=== PATIENT | male | born 1990 | race African-American/Black ===

== ENCOUNTER 2016-12-14 20:18 | Emergency (ER) | payer SELFPAY ==
[2016-12-14 20:33] VITALS: BP 142/87
--- NOTE | 2016-12-14 20:36 | ER Document Report ---
ED Medical Screen (RME) - General Chief Complaint: Rash Stated Complaint: GENITAL RASH Mode of Arrival: Ambulatory Information source: Patient Notes: Patient presents to the emergency department with complaints of genital rash. He reports a herpes outbreak but has never had herpes before. Patient reports he was masturbating last night when he started hurting and noticed a rash this morning. Denies pain with void. Denies other symptoms such as fever vomiting diarrhea. I have greeted and performed a rapid initial assessment of this patient. A comprehensive ED assessment and evaluation of the patient, analysis of test results and completion of the medical decision making process will be conducted by additional ED providers. TRAVEL OUTSIDE OF THE [place] IN LAST 30 DAYS: No - Related Data Allergies/Adverse Reactions: No Known Allergies Allergy (Unverified 01/27/16 16:58) Past Medical History - Immunizations Immunizations up to date: Yes Hx Diphtheria, Pertussis, Tetanus Vaccination: No Physical Exam - Vital signs Vitals: Temp Pulse Resp BP Pulse Ox 97.9 F 70 18 142/87 H 96 12/14/16 20:32 12/14/16 20:32 12/14/16 20:32 12/14/16 20:32 12/14/16 20:32 Course - Vital Signs Vital signs: Temp Pulse Resp BP Pulse Ox 97.9 F 70 18 142/87 H 96 12/14/16 20:32 12/14/16 20:32 12/14/16 20:32 12/14/16 20:32 12/14/16 20:32
[2016-12-14] MEDS ORDERED: ACYCLOVIR 200 MG CAPSULE PO ONE (21:52)
--- NOTE | 2016-12-14 21:54 | ER Document Report ---
HPI - HPI Patient complains to provider of: genital rash Pain Level: 4 Context: Patient is a 26-year-old male presents for Department complaining of skin outbreak on his penis that he has had before. Patient states that he is diagnosed with genital herpes about 2 years ago and is now break every 4-6 months. Has previously been treated with a sick [place] which has worked for him. His any drainage from the tip of his penis any pyuria any groin pain or back pain. - DERM Skin Color: Normal Past Medical History - General Information source: Patient - Social History Smoking Status: Current Every Day Smoker Chew tobacco use (# tins/day): No Frequency of alcohol use: None Drug Abuse: Marijuana Family History: Reviewed & Not Pertinent Patient has suicidal ideation: No Patient has homicidal ideation: No Renal/ Medical History: Denies: Hx Peritoneal Dialysis - Immunizations Immunizations up to date: Yes Hx Diphtheria, Pertussis, Tetanus Vaccination: No Vertical Provider Document - CONSTITUTIONAL Agree With Documented VS: Yes Exam Limitations: No Limitations General Appearance: WD/WN, No Apparent Distress - INFECTION CONTROL TRAVEL OUTSIDE OF THE [place] IN LAST 30 DAYS: No - RESPIRATORY O2 Sat by Pulse Oximetry: 96 - GI/ABDOMEN Gastrointestinal: Abdomen Soft, Abdomen Non-Tender, No Organomegaly, Normal Bowel Sounds - REPRODUCTIVE Male Genitalia: Abnormal Inspection - Evidence of vesicles at the base of the head of the penis. Crusting. - BACK Back: negative: CVA Tenderness-Right, CVA Tenderness-Left - NEURO Level of Consciousness: Awake, Alert, Appropriate Motor/Sensory: No Motor Deficit, No Sensory Deficit - DERM Integumentary: Warm, Dry Course - Re-evaluation Re-evalutation: 12/14/16 21:49 Patient has evidence of a herpes outbreak. will discharge home on acyclovir and can follow-up with his PCP or the health department - Vital Signs Vital signs: Temp Pulse Resp BP Pulse Ox 97.9 F 70 18 142/87 H 96 12/14/16 20:32 12/14/16 20:32 12/14/16 20:32 12/14/16 20:32 12/14/16 20:32 Discharge - Discharge Clinical Impression: Genital herpes Qualifiers: Herpes simplex infection site: penis Qualified Code(s): A60.01 - Herpesviral infection of penis Condition: Good Disposition: HOME, SELF-CARE Instructions: Genital Herpes ([facility]), Acyclovir ([facility]) Prescriptions: Acyclovir [Acyclovir 400 mg Tablet] 400 mg PO TID 10 Days Forms: Elevated Blood Pressure Referrals: [facility] [NO LOCAL MD] - Follow up as needed
== END 2016-12-14 22:05 | disposition home or self-care (01) ==
LOC: ER 20:18
DX: A60.01 Herpesviral infection of penis (principal); R21 Rash and other nonspecific skin eruption; F17.200 Nicotine dependence, unspecified, uncomplicated
CPT/HCPCS: 99282

== ENCOUNTER 2017-03-27 12:44 | Emergency (ER) | payer SELFPAY ==
[2017-03-27 13:14] VITALS: BP 127/76
--- NOTE | 2017-03-27 13:47 | ER Document Report ---
HPI - HPI Pain Level: 4 Context: Patient is a 26-year-old male who comes to the ED c/o penile rash that began this morning. Pt states that it itches and does cause some irritation; soreness. Pt states he has had this before and was dx'd with herpes. Pt states that he has not been sexually active in the last month. He has not noticed any discharge, dysuria, pyuria, hematuria, fever, cp, sob, cough, abd pain, n/v. - ROS Systems Reviewed and Negative: Yes All other systems reviewed and negative - DERM Skin Color: Normal Past Medical History - Social History Smoking Status: Never Smoker - recreation marijuana only. Family History: Reviewed & Not Pertinent Patient has suicidal ideation: No Renal/ Medical History: Denies: Hx Peritoneal Dialysis - Immunizations Immunizations up to date: Yes Hx Diphtheria, Pertussis, Tetanus Vaccination: No Vertical Provider Document - CONSTITUTIONAL Notes: PHYSICAL EXAMINATION: GENERAL: Well-appearing, well-nourished and in no acute distress. HEAD: Atraumatic, normocephalic. EYES: Pupils equal round and reactive to light, extraocular movements intact, sclera anicteric, conjunctiva are normal. throat: oropharynx clear without exudates. No tonsilar hypertrophy or erythema. Moist mucous membranes. NECK: Normal range of motion, supple without lymphadenopathy LUNGS: Breath sounds clear to auscultation bilaterally and equal. No wheezes rales or rhonchi. HEART: Regular rate and rhythm without murmurs, rubs, gallops. ABDOMEN: Soft, nontender, nondistended abdomen. No guarding, no rebound. No masses appreciated. Normal bowel sounds present. No CVA tenderness bilaterally. No inguinal lymphadenopathy. : + erythemic papulovesicules to head of penis and one area on shaft. + mild tenderness to palpation. No urethral discharge, scrotal/testicle tenderness. Extremities: No cyanosis, clubbing, or edema b/l. Peripheral pulses 2+. Capillary refill less than 3 seconds. PSYCH: Normal mood, normal affect. SKIN: Warm, Dry, normal turgor, no rashes or lesions noted. - INFECTION CONTROL TRAVEL OUTSIDE OF THE [place] IN LAST 30 DAYS: No - RESPIRATORY O2 Sat by Pulse Oximetry: 97 Course - Re-evaluation Re-evalutation: Patient is a 26-year-old afebrile male who comes to the office with a rash to his penis consistent with herpes. Pt reports having this in the past as well. I will give him Acyclovir for his symptoms. Avoidance of sexual contact until lesions resolve. Conservative measures otherwise for symptoms. Pt in agreement. Recheck with PCM in 2-3 days. ED prn worsening symptoms. 03/27/17 13:46 - Vital Signs Vital signs: Temp Pulse Resp BP Pulse Ox 98.0 F 61 14 127/76 H 97 03/27/17 13:13 03/27/17 13:13 03/27/17 13:13 03/27/17 13:13 03/27/17 13:13 Discharge - Discharge Clinical Impression: Herpes Condition: Stable Disposition: HOME, SELF-CARE Additional Instructions: Herpes Simplex You have been diagnosed as having a herpes virus infection. The herpes ( "cold sore") virus usually infects the areas around the mouth. However, it can cause infection on any skin surface. It's particularly dangerous if infection occurs in the eye. On the initial infection, herpes blisters erupt over a large area. There is usually fever and aching. This infection takes about 14 days to resolve. After the initial infection, herpes sores can erupt on small areas (usually the lips), then heal in about a week. Sunburn, fever, local irritation, or even emotions can provoke a "fever blister" attack of herpes. Initial herpes infections can be treated with medication if severe. Subsequent attacks are usually given only local care to reduce symptoms; however , the physician may decide to prescribe anti-viral medication if your case warrants it. Call the doctor if you are worsening in any way. Take meds as directed tylenol/ibuprofen as needed Avoid sexual contact until lesions resolve Keep the skin clean F/u: with PCM in 2-3 days for a recheck. Return to the ED with any worsening pain, rash, fever, chest pain, shortness of breath, abscess, or purulent discharge. Prescriptions: Acyclovir 800 mg PO BID #10 tablet
== END 2017-03-27 14:10 | disposition home or self-care (01) ==
LOC: ER 12:44
DX: B00.9 Herpesviral infection, unspecified (principal); R21 Rash and other nonspecific skin eruption
CPT/HCPCS: 99282

== ENCOUNTER 2017-07-18 15:44 | Emergency (ER) | payer SELFPAY ==
--- NOTE | 2017-07-18 17:03 | ER Document Report ---
ED Skin Rash/Insect Bite/Abscs - General Chief Complaint: Rash Stated Complaint: RASH Time Seen by Provider: 07/18/17 16:54 Mode of Arrival: Ambulatory Information source: Patient Notes: 26-year-old male presents to ED for complaint of rash to his genitals. He states he has a history of genital herpes. He states he has run out of medication and does not have a primary doctor. He states he has taken dicyclomine in the past for these genital herpes. TRAVEL OUTSIDE OF THE [place] IN LAST 30 DAYS: No - HPI Patient complains to provider of: Skin rash/lesion - Genital herpes Onset: Other - States he has them periodically he noticed them again this morning Onset/Duration: Gradual Quality of pain: Burning Severity: Moderate Pain Level: 3 Skin Character: Vesicular Quality of rash: Painful Identify cause: Yes - Has a history of genital herpes Exacerbated by: Denies Relieved by: Denies Similar symptoms previously: Yes Recently seen / treated by doctor: No - Related Data Allergies/Adverse Reactions: No Known Allergies Allergy (Unverified 01/27/16 16:58) Past Medical History - General Information source: Patient - Social History Smoking Status: Never Smoker Cigarette use (# per day): No Chew tobacco use (# tins/day): No Smoking Education Provided: No Frequency of alcohol use: None Drug Abuse: Marijuana Occupation: Landscaping Lives with: Alone Family History: DM, Hypertension. denies: Arthritis, CAD, COPD, CVA, Hyperlipidemia, Malignancy, Thyroid Disfunction Patient has suicidal ideation: No Patient has homicidal ideation: No - Past Medical History Cardiac Medical History: Reports: None Pulmonary Medical History: Reports: None EENT Medical History: Reports: None Neurological Medical History: Reports: None Endocrine Medical History: Reports: None Renal/ Medical History: Reports: Other - Genital. herpes. Denies: Hx Peritoneal Dialysis Malignancy Medical History: Reports None GI Medical History: Reports: None Musculoskeltal Medical History: Reports None Skin Medical History: Reports None Psychiatric Medical History: Reports: None Traumatic Medical History: Reports: None Infectious Medical History: Reports: None Surgical Hx: Negative - Immunizations Immunizations up to date: Yes Hx Diphtheria, Pertussis, Tetanus Vaccination: No Review of Systems - Review of Systems Constitutional: No symptoms reported EENT: No symptoms reported Cardiovascular: No symptoms reported Respiratory: No symptoms reported Gastrointestinal: No symptoms reported Genitourinary: Other - Genital herpes Male Genitourinary: Other - General to herpes Musculoskeletal: No symptoms reported Skin: No symptoms reported Hematologic/Lymphatic: No symptoms reported Neurological/Psychological: No symptoms reported -: Yes All other systems reviewed and negative Physical Exam - Vital signs Vitals: Temp Pulse Resp BP Pulse Ox 98.3 F 55 L 16 138/62 H 99 07/18/17 16:00 07/18/17 16:00 07/18/17 16:00 07/18/17 16:00 07/18/17 16:00 Interpretation: Normal - General General appearance: Appears well, Alert - HEENT Head: Normocephalic, Atraumatic Eyes: Normal Pupils: PERRL - Respiratory Respiratory status: No respiratory distress Chest status: Nontender Breath sounds: Normal Chest palpation: Normal - Cardiovascular Rhythm: Regular Heart sounds: Normal auscultation Murmur: No - Abdominal Inspection: Normal Distension: No distension Bowel sounds: Normal Tenderness: Nontender Organomegaly: No organomegaly - Back Back: Normal, Nontender - Extremities General upper extremity: Normal inspection, Nontender, Normal color, Normal ROM , Normal temperature General lower extremity: Normal inspection, Nontender, Normal color, Normal ROM , Normal temperature, Normal weight bearing. No: Bandar's sign - Neurological Neuro grossly intact: Yes Cognition: Normal Orientation: AAOx4 Nasrin Coma Scale Eye Opening: Spontaneous Nasrin Coma Scale Verbal: Oriented Nasrin Coma Scale Motor: Obeys Commands [place] Coma Scale Total: 15 Speech: Normal Motor strength normal: LUE, RUE, LLE, RLE Sensory: Normal - Psychological Associated symptoms: Normal affect, Normal mood - Skin Skin Temperature: Warm Skin Moisture: Dry Skin Color: Normal Skin irregularity: Rash Character of irregularity: Vesicular Course - Re-evaluation Re-evalutation: 07/18/17 17:07 Patient has a new outbreak of genital herpes and would like some. He states he does not have a primary doctor. Patient was given a prescription for acyclovir and a list of all the local doctors for him to find himself a local doctor. - Vital Signs Vital signs: Temp Pulse Resp BP Pulse Ox 98.3 F 55 L 16 138/62 H 99 07/18/17 16:00 07/18/17 16:00 07/18/17 16:00 07/18/17 16:00 07/18/17 16:00 Discharge - Discharge Clinical Impression: Herpes simplex of male genitalia Condition: Stable Disposition: HOME, SELF-CARE Instructions: Family Physicians / Practices Additional Instructions: Herpes Simplex You have been diagnosed as having a herpes virus infection. The herpes ( "cold sore") virus usually infects the areas around the mouth. However, it can cause infection on any skin surface. It's particularly dangerous if infection occurs in the eye. On the initial infection, herpes blisters erupt over a large area. There is usually fever and aching. This infection takes about 14 days to resolve. After the initial infection, herpes sores can erupt on small areas (usually the lips), then heal in about a week. Sunburn, fever, local irritation, or even emotions can provoke a "fever blister" attack of herpes. Initial herpes infections can be treated with medication if severe. Subsequent attacks are usually given only local care to reduce symptoms; however , the physician may decide to prescribe anti-viral medication if your case warrants it. Call the doctor if you are worsening in any way. Acyclovir Acyclovir (Zovirax) is used to treat infections caused by the Herpes family of viruses. It's available as capsules or ointment. Zovirax is most effective if started at the first sign of the viral outbreak. It can decrease the severity and duration of symptoms. However, it doesn't eliminate the virus from the body completely. If you're prone to repeated outbreaks of herpes, you'll continue to have attacks. Apply ointment with a disposable glove or finger-cot to avoid spreading the virus with your finger. If pills have been prescribed, take them for the full recommended course. Occasionally, mild nausea or headaches may occur. Call the doctor if you develop wheezing, itching, rash, shortness of breath , or lightheadedness. FOLLOW-UP CARE: If you have been referred to a physician for follow-up care, call the physician s office for an appointment as you were instructed or within the next two days. If you experience worsening or a significant change in your symptoms, notify the physician immediately or return to the Emergency Department at any time for re-evaluation. Prescriptions: Acyclovir [Zovirax] 200 mg PO 5XD #50 capsule Forms: Elevated Blood Pressure, Smoking Cessation Education, Return to Work
[2017-07-18 17:17] VITALS: BP 128/74
== END 2017-07-18 17:12 | disposition home or self-care (01) ==
LOC: ER 15:44
DX: A60.00 Herpesviral infection of urogenital system, unspecified (principal)
CPT/HCPCS: 99282

== ENCOUNTER 2017-10-25 10:10 | Emergency (ER) | payer SELFPAY ==
[2017-10-25] MEDS ORDERED: AZITHROMYCIN 250 MG TABLET PO ONE (10:58)
[2017-10-25] MEDS ORDERED: LIDOCAINE 1% INJ-PF (10 MG/ML) 30 ML SDV INJ ONE (10:58)
[2017-10-25] MEDS ORDERED: CEFTRIAXONE INJ 250 MG VIAL IM ONE (10:58)
--- NOTE | 2017-10-25 11:26 | ER Document Report ---
HPI - HPI Patient complains to provider of: Skin rash Onset: Other - 4 days Onset/Duration: Persistent Pain Level: Denies Context: Patient complains of skin rash to the underside of his penis for the past 4 days. Patient does report a previous history of genital warts as well as genital herpes. Patient does report using a new soap to the area. Associated Symptoms: Other - Skin rash Exacerbated by: Denies Relieved by: Denies Similar symptoms previously: No Recently seen / treated by doctor: No - ROS ROS below otherwise negative: Yes Systems Reviewed and Negative: Yes All other systems reviewed and negative - CONSTITUTIONAL Constitutional: DENIES: Fever, Chills - RESPIRATORY Respiratory: DENIES: Coughing - GASTROINTESTINAL Gastrointestinal: DENIES: Nausea - URINARY Urinary: DENIES: Dysuria Notes: Patient does report yellow discharge in his ejaculate and is concerned about possible STD. - REPRODUCTIVE Reproductive: DENIES: Abnormal bleeding / discharge - MUSCULOSKELETAL Musculoskeletal: DENIES: Back Pain, Neck Pain - DERM Skin Color: Normal Skin Problems: Rash Past Medical History - General Information source: Patient - Social History Smoking Status: Never Smoker Chew tobacco use (# tins/day): No Frequency of alcohol use: None Drug Abuse: Marijuana Family History: DM, Hypertension. denies: Arthritis, CAD, COPD, CVA, Hyperlipidemia, Malignancy, Thyroid Disfunction Patient has suicidal ideation: No Patient has homicidal ideation: No Renal/ Medical History: Denies: Hx Peritoneal Dialysis Infectious Medical History: Reports: Other - Herpes, HPV Surgical Hx: Negative - Immunizations Immunizations up to date: Yes Hx Diphtheria, Pertussis, Tetanus Vaccination: No Vertical Provider Document - CONSTITUTIONAL Agree With Documented VS: Yes Exam Limitations: No Limitations General Appearance: WD/WN, No Apparent Distress - INFECTION CONTROL TRAVEL OUTSIDE OF THE [place] IN LAST 30 DAYS: No - HEENT HEENT: Atraumatic, Normocephalic - NECK Neck: Normal Inspection - RESPIRATORY Respiratory: Breath Sounds Normal, No Respiratory Distress O2 Sat by Pulse Oximetry: 98 - CARDIOVASCULAR Cardiovascular: Regular Rate, Regular Rhythm - GI/ABDOMEN Gastrointestinal: Abdomen Soft, Abdomen Non-Tender - REPRODUCTIVE Male Genitalia: Abnormal Inspection - Mildly scaling papular rash to ventral side of the penile shaft, no testicular tenderness, no penile discharge, no inguinal lymph adenopathy - BACK Back: Normal Inspection - MUSCULOSKELETAL/EXTREMETIES Musculoskeletal/Extremeties: MAEW - NEURO Level of Consciousness: Awake, Alert, Appropriate Motor/Sensory: No Motor Deficit - DERM Integumentary: Rash - Ventral aspect of the penis Course - Re-evaluation Re-evalutation: 10/25/17 Rash does not look concerning for herpes or HPV virus at this time. Will cover with antifungal medication at this time. Patient encouraged to avoid new soap and to return using his usual detergents - Vital Signs Vital signs: Temp Pulse Resp BP Pulse Ox 98.4 F 63 12 125/71 98 10/25/17 10:31 10/25/17 10:31 10/25/17 10:31 10/25/17 10:31 10/25/17 10:31 Discharge - Discharge Clinical Impression: Skin rash, Penile discharge Condition: Stable Disposition: HOME, SELF-CARE Instructions: Azithromycin ([facility]), Rocephin ([facility]), Skin Fungus ([facility]) Additional Instructions: Return immediately for any new or worsening symptoms Followup with your primary care provider, call tomorrow to make a followup appointment Use your normal mild soap cleanse the affected area Cultures are pending, we will call if you need any different treatment Prescriptions: Clotrimazole 1 applic TOP BID #45 gm
[2017-10-25 12:39] VITALS: BP 118/73
[2017-10-25 13:26] LABS: CHLAM PCR NOT DETECTED (NOT DETECT); GON PCR NOT DETECTED (NOT DETECT)
== END 2017-10-25 12:08 | disposition home or self-care (01) ==
LOC: ER 10:10
DX: R21 Rash and other nonspecific skin eruption (principal); R36.9 Urethral discharge, unspecified; A60.00 Herpesviral infection of urogenital system, unspecified; A63.0 Anogenital (venereal) warts
CPT/HCPCS: 99283; 96372; 87491; 87591; J3490; J0696

== ENCOUNTER 2018-03-02 11:42 | Emergency (ER) | payer SELFPAY ==
[2018-03-02 11:56] VITALS: BP 113/70
[2018-03-02] MEDS ORDERED: LIDOCAINE 1% INJ-PF (10 MG/ML) 30 ML SDV INJ ONE (12:13)
[2018-03-02] MEDS ORDERED: AZITHROMYCIN 250 MG TABLET PO ONE (12:13)
[2018-03-02] MEDS ORDERED: CEFTRIAXONE INJ 250 MG VIAL IM ONE (12:13)
--- NOTE | 2018-03-02 12:19 | ER Document Report ---
ED GI/ - General Chief Complaint: STD Exposure Stated Complaint: STD CHECK Time Seen by Provider: 03/02/18 12:00 Mode of Arrival: Ambulatory Information source: Patient Notes: 27-year-old male presents to ED for complaint of exposure to gonorrhea. He states that a recent sexual partner was called and told that her previous partner had gonorrhea and was being treated for it. He states he also has some dry areas on his penis and he was concerned. He said they are not so they are not irritated. He states when he masturbates he does not use any kind of lubricant and is made his penis dry. States he also when he ejaculates it is not his forceful and it kind just "plops". He denies any pain or discomfort with urination. Denies any problems starting or finishing his streams. TRAVEL OUTSIDE OF THE [place] IN LAST 30 DAYS: No - HPI Patient complains to provider of: Other - STD exposure dry penis Onset: Other - He was recently told by her previous sexual partner that she was exposed to gonorrhea Quality of pain: No pain Sexual history: Unprotected intercourse, STD exposure Associated symptoms: denies: Penile discharge Exacerbated by: Denies Relieved by: Denies Similar symptoms previously: Yes Recently seen / treated by doctor: No - Related Data Allergies/Adverse Reactions: No Known Allergies Allergy (Verified 03/02/18 11:50) Past Medical History - General Information source: Patient - Social History Smoking Status: Never Smoker Cigarette use (# per day): No Chew tobacco use (# tins/day): No Smoking Education Provided: No Frequency of alcohol use: None Drug Abuse: Marijuana Family History: DM, Hypertension Patient has suicidal ideation: No Patient has homicidal ideation: No - Past Medical History Cardiac Medical History: Reports: None Pulmonary Medical History: Reports: None EENT Medical History: Reports: None Neurological Medical History: Reports: None Endocrine Medical History: Reports: None Renal/ Medical History: Reports: None Malignancy Medical History: Reports None GI Medical History: Reports: None Musculoskeltal Medical History: Reports None Skin Medical History: Reports None Psychiatric Medical History: Reports: None Traumatic Medical History: Reports: None 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 denies: See HPI , Erectile dysfunction - States the last couple days his ejaculation has not been as forceful, Testicular pain, Penile discharge Musculoskeletal: No symptoms reported Skin: No symptoms reported Hematologic/Lymphatic: No symptoms reported Neurological/Psychological: No symptoms reported -: Yes All other systems reviewed and negative Physical Exam - Vital signs Vitals: Temp Pulse Resp BP Pulse Ox 98.2 F 62 18 113/70 96 03/02/18 11:55 03/02/18 11:55 03/02/18 11:55 03/02/18 11:55 03/02/18 11:55 Interpretation: Normal - General General appearance: Appears well, Alert - HEENT Head: Normocephalic, Atraumatic Eyes: Normal Pupils: PERRL - Respiratory Respiratory status: No respiratory distress Chest status: Nontender Breath sounds: Normal Chest palpation: Normal - Cardiovascular Rhythm: Regular Heart sounds: Normal auscultation Murmur: No - Abdominal Inspection: Normal Distension: No distension Bowel sounds: Normal Tenderness: Nontender Organomegaly: No organomegaly - Genitourinary Tenderness: Nontender Cremasteric reflex: Normal Scrotum: Normal Notes: Very minimal dryness behind the head of the penis no ulcers no canker sores no penile drainage - Back Back: Normal, Nontender - Extremities General upper extremity: Normal inspection, Nontender, Normal color, Normal ROM , Normal temperature General lower extremity: Normal inspection, Nontender, Normal color, Normal ROM , Normal temperature, Normal weight bearing. No: Bandar's sign - Neurological Neuro grossly intact: Yes Cognition: Normal Orientation: AAOx4 Crenshaw Coma Scale Eye Opening: Spontaneous Nasrin Coma Scale Verbal: Oriented Nasrin Coma Scale Motor: Obeys Commands Nasrin Coma Scale Total: 15 Speech: Normal Motor strength normal: LUE, RUE, LLE, RLE Sensory: Normal - Psychological Associated symptoms: Normal affect, Normal mood - Skin Skin Temperature: Warm Skin Moisture: Dry Skin Color: Normal Course - Re-evaluation Re-evalutation: 03/02/18 12:18 Patient was treated with azithromycin and Rocephin for possible exposure to gonorrhea. GC and chlamydia urine was sent for testing. Patient to call the culture line tomorrow for results. - Vital Signs Vital signs: Temp Pulse Resp BP Pulse Ox 98.2 F 62 18 113/70 96 03/02/18 11:55 03/02/18 11:55 03/02/18 11:55 03/02/18 11:55 03/02/18 11:55 Discharge - Discharge Clinical Impression: STD exposure Condition: Stable Disposition: HOME, SELF-CARE Instructions: Family Physicians / Practices Additional Instructions: He was seen today for STD exposure. Rocephin You have been given an injection of an antibiotic called Rocephin ( ceftriaxone). Sometimes the injection must be combined with antibiotic pills. For some infections, such as an uncomplicated ear infection, Rocephin provides all the antibiotic that's needed. The antibiotic will be in your body for about two days. For serious infections, we usually repeat doses of Rocephin daily. Side effects are very unusual following a shot. Women may develop vaginal yeast infections, and babies can get yeast (thrush) in the mouth following the use of antibiotics. Contact your physician if you have symptoms with this medication. Allergy to this antibiotic can result in hives, wheezing, faintness, or itching. If symptoms of allergy occur, call the doctor at once. Azithromycin Azithromycin (Zithromax) is a broad spectrum antibiotic in the same class as erythromycin. It can treat a variety of bacterial infections, but is most frequently used for respiratory infections. Azithromycin is extremely long-lasting. It accumulates in body tissues and continues to kill bacteria for many days. In order to improve absorption, Azithromycin should be taken at least one hour before or two hours after a meal. It does not have the same strong tendency to upset the stomach as erythromycin and is usually very well tolerated. Patients who have had a rash or other true allergic reactions to erythromycin should not take this medication. Call if you develop gastrointestinal distress, severe diarrhea, rash, hives, itching, or shortness of breath. Call tomorrow morning the culture line to find the results of your GC chlamydia call [phone] FOLLOW-UP CARE: If you have been referred to a physician for follow-up care, call the physician s office for an appointment as you were instructed or within the next two days. If you experience worsening or a significant change in your symptoms, notify the physician immediately or return to the Emergency Department at any time for re-evaluation.
[2018-03-02 14:08] LABS: CHLAM PCR NOT DETECTED (NOT DETECT); GON PCR NOT DETECTED (NOT DETECT)
== END 2018-03-02 12:32 | disposition home or self-care (01) ==
LOC: ER 11:42
DX: Z20.2 Contact with and (suspected) exposure to infections with a predominantly sexual mode of transmission (principal)
CPT/HCPCS: 99283; 96372; 87491; 87591; J3490; J0696

== ENCOUNTER 2018-03-17 13:41 | Emergency (ER) | payer SELFPAY ==
[2018-03-17 13:48] VITALS: BP 119/67
[2018-03-17] MEDS ORDERED: LIDOCAINE 1% INJ-PF (10 MG/ML) 30 ML SDV INJ ONE (14:01)
[2018-03-17] MEDS ORDERED: CEFTRIAXONE INJ 250 MG VIAL IM ONE (14:01)
[2018-03-17] MEDS ORDERED: AZITHROMYCIN 250 MG TABLET PO ONE (14:01)
--- NOTE | 2018-03-17 14:59 | ER Document Report ---
HPI - HPI Pain Level: Denies Notes: Patient is a 27-year-old male with no significant past medical history who presents to the ED complaining of dysuria and urethral discharge 1 day. Patient states that he did have unprotected sex somewhat recently. He is unaware if his partner is symptomatically or not. He is otherwise eating and drinking without difficulties. Is having normal bowel movements. Denies any drug allergies. No other concerns or complaints at this time. Denies any headache, fever, URI, sore throat, chest pain, palpitations, syncope, cough, shortness of breath, wheeze, dyspnea, abdominal pain, nausea/vomiting/diarrhea, or rash. - ROS Systems Reviewed and Negative: Yes All other systems reviewed and negative - REPRODUCTIVE Reproductive: REPORTS: Abnormal bleeding / discharge - discharge Past Medical History - Social History Smoking Status: Never Smoker Chew tobacco use (# tins/day): No Frequency of alcohol use: None Drug Abuse: Marijuana Family History: DM, Hypertension Patient has suicidal ideation: No Patient has homicidal ideation: No Renal/ Medical History: Denies: Hx Peritoneal Dialysis - Immunizations Immunizations up to date: Yes Hx Diphtheria, Pertussis, Tetanus Vaccination: No Vertical Provider Document - CONSTITUTIONAL Agree With Documented VS: Yes Notes: PHYSICAL EXAMINATION: GENERAL: Well-appearing, well-nourished and in no acute distress. HEAD: Atraumatic, normocephalic. EYES: Pupils equal round and reactive to light, extraocular movements intact, sclera anicteric, conjunctiva are normal. LUNGS: Breath sounds clear to auscultation bilaterally and equal. No wheezes rales or rhonchi. HEART: Regular rate and rhythm without murmurs, rubs, gallops. ABDOMEN: Soft, nontender, nondistended abdomen. No guarding, no rebound. No masses appreciated. Normal bowel sounds present. No CVA tenderness bilaterally. : Circumcised. No obvious lesions, ulcerations, or rash noted. No tenderness to the testicles/scrotum/penis. No obvious lymphadenopathy. ?+ clear discharge noted. Extremities: No cyanosis, clubbing, or edema b/l. Peripheral pulses 2+. Capillary refill less than 3 seconds. NEUROLOGICAL: Normal speech, normal gait. PSYCH: Normal mood, normal affect. SKIN: Warm, Dry, normal turgor, no rashes or lesions noted. - INFECTION CONTROL TRAVEL OUTSIDE OF THE [place] IN LAST 30 DAYS: No Course - Re-evaluation Re-evalutation: 03/17/18 14:56 Patient is an afebrile, well-hydrated, 27-year-old male who presents to the ED with dysuria and urethral discharge, possible STD. Vitals are acceptable. PE is otherwise unremarkable. Urinalysis, GC/chlamydia, UC are all pending. Patient was given Zithromax and Rocephin. No other labs or imaging warranted at this time based on H&P. He has no significant tachycardia, tachypnea, or hypoxia. He is tolerating p.o. without any difficulties. Abdomen is otherwise soft and nontender. Low suspicion for any necrotizing fasciitis, sepsis, meningitis, acute abdomen, or other systemic emergent condition at this time. Patient to monitor symptoms closely and seek medical attention with any acute changes. Conservative measures otherwise for symptoms. Recheck with your PCM in 3-5 days. Return to the ED with any worsening/concerning symptoms otherwise as reviewed discharge. Patient is in agreement. - Vital Signs Vital signs: Temp Pulse Resp BP Pulse Ox 98.6 F 71 16 119/67 97 03/17/18 13:46 03/17/18 13:46 03/17/18 13:46 03/17/18 13:46 03/17/18 13:46 Discharge - Discharge Clinical Impression: Dysuria, Urethral discharge in male Condition: Stable Disposition: HOME, SELF-CARE Additional Instructions: Push fluids (i.e. water, cranberry juice) Abstain from any sexual intercourse x2 weeks Proper hygenic technique Keep the skin clean Safe sexual practices with condoms everytime Tylenol/ibuprofen as needed May use over the counter AZO for burning with urination Check in with the health department this week for further testing* Your chlamydia/Ghon test are pending and you will be notified if positive results; you may call in 1 day for the results as well Return immediately if symptoms worsen F/u with your PCM in 3-5 days for a recheck Consider consult with a Urologist for ongoing/worsening symptoms. Return to the ED with any development of ROSALES/fever, trouble with vision, eye redness, worsening pain, urethral discharge, urinary retention, blood in the urine, flank pain, abdominal pain, n/v, Chest Pain, shortness of breath, joint pains, trouble breathing, or any other worsening/concerning symptoms as needed otherwise. Referrals: [facility] DEPT,[facility] [NO LOCAL MD] - Follow up in 3-5 days
[2018-03-17 15:08] LABS: APPEARANCE,URINE CLEAR; BILIRUBIN,URINE NEGATIVE (NEGATIVE); COLOR,URINE YELLOW; GLUCOSE, URINE NEGATIVE (NEGATIVE); KETONES,URINE NEGATIVE (NEGATIVE); LEUKOCYTE ESTERASE,URINE NEGATIVE (NEGATIVE); NITRITE,URINE NEGATIVE (NEGATIVE); PROTEIN,URINE NEGATIVE (NEGATIVE); URINE SPECIFIC GRAVITY 1.029; UROBILINOGEN,URINE NEGATIVE mg/dL (<2.0)
[2018-03-17 16:34] LABS: CHLAM PCR NOT DETECTED (NOT DETECT); GON PCR NOT DETECTED (NOT DETECT)
== END 2018-03-17 15:20 | disposition home or self-care (01) ==
LOC: ER 13:41
DX: R30.0 Dysuria (principal); R36.9 Urethral discharge, unspecified; F12.10 Cannabis abuse, uncomplicated; Z20.2 Contact with and (suspected) exposure to infections with a predominantly sexual mode of transmission
CPT/HCPCS: 99283; 96372; 87086; 81001; 87491; 87591; J3490; J0696

== ENCOUNTER 2019-09-13 22:31 | Emergency (ER) | payer SELFPAY ==
--- NOTE | 2019-09-14 00:03 | ER Document Report ---
ED Medical Screen (RME) - General Chief Complaint: Pain With Urination Stated Complaint: PAINFUL URINATING AND DISCOLORATION Time Seen by Provider: 09/14/19 00:00 Mode of Arrival: Ambulatory Information source: Patient Notes: 29-year-old male presents emergency department with irritation to his penis hurts when he voids. Also reports some nguyen discharge. Reports he is sexually active one partner does not use condoms. He reports he would rather be treated for STDs than wait for results. His fever vomiting diarrhea. Denies abdominal pain. Denies testicular pain. I have greeted and performed a rapid initial assessment of this patient. A comprehensive ED assessment and evaluation of the patient, analysis of test results and completion of the medical decision making process will be conducted by additional ED providers. Dictation of this chart was performed using voice recognition software; therefore, there may be some unintended grammatical errors. TRAVEL OUTSIDE OF THE [place] IN LAST 30 DAYS: No - Related Data Allergies/Adverse Reactions: No Known Allergies Allergy (Verified 03/02/18 11:50) Past Medical History Renal/ Medical History: Denies: Hx Peritoneal Dialysis - Immunizations Immunizations up to date: Yes Hx Diphtheria, Pertussis, Tetanus Vaccination: No
[2019-09-14 00:28] LABS: APPEARANCE,URINE CLEAR; BILIRUBIN,URINE NEGATIVE (NEGATIVE); COLOR,URINE YELLOW; GLUCOSE, URINE NEGATIVE (NEGATIVE); KETONES,URINE 20 mg/dL (NEGATIVE); LEUKOCYTE ESTERASE,URINE NEGATIVE (NEGATIVE); NITRITE,URINE NEGATIVE (NEGATIVE); PROTEIN,URINE NEGATIVE (NEGATIVE); URINE SPECIFIC GRAVITY 1.032
[2019-09-14 01:50] LABS: CHLAM PCR DETECTED (NOT DETECT)
[2019-09-14] MEDS ORDERED: METRONIDAZOLE 500 MG TABLET PO ONE (02:18)
[2019-09-14] MEDS ORDERED: AZITHROMYCIN 250 MG TABLET PO ONE (02:18)
[2019-09-14] MEDS ORDERED: ONDANSETRON 4 MG TAB.RAPDIS PO ONE (02:18)
[2019-09-14] MEDS ORDERED: LIDOCAINE 1% INJ-PF (10 MG/ML) 30 ML SDV INJ ONE (02:20)
[2019-09-14] MEDS ORDERED: CEFTRIAXONE INJ 250 MG VIAL IM ONE (02:20)
--- NOTE | 2019-09-14 02:22 | ER Document Report ---
HPI - HPI Time Seen by Provider: 09/14/19 00:00 Pain Level: 5 Context: Patient is a 29-year-old male that comes emergency department for chief complaint of urinary frequency, some burning, and also a yellowish-greenish discharge from the penis. This started yesterday. He states he is sexually active with one partner and does not use condoms. He denies abdominal pain, testicular pain, rash, fever, nausea/vomiting, or any other complaints. He denies any past medical history. - REPRODUCTIVE Reproductive: DENIES: : Past Medical History - General Information source: Patient - Social History Smoking Status: Never Smoker Frequency of alcohol use: None Drug Abuse: None Lives with: Family Family History: DM, Hypertension Patient has suicidal ideation: No Patient has homicidal ideation: No Renal/ Medical History: Denies: Hx Peritoneal Dialysis Surgical Hx: Negative - Immunizations Immunizations up to date: Yes Hx Diphtheria, Pertussis, Tetanus Vaccination: Yes Vertical Provider Document - CONSTITUTIONAL General Appearance: WD/WN, No Apparent Distress - INFECTION CONTROL TRAVEL OUTSIDE OF THE [place] IN LAST 30 DAYS: No - HEENT HEENT: Atraumatic, Normal ENT Exam, Normocephalic - NECK Neck: Normal Inspection - RESPIRATORY Respiratory: Breath Sounds Normal, No Respiratory Distress - CARDIOVASCULAR Cardiovascular: Regular Rate, Regular Rhythm - GI/ABDOMEN Gastrointestinal: Abdomen Soft, Abdomen Non-Tender. negative: Abdomen Tender - REPRODUCTIVE Male Genitalia: negative: Normal Inspection - There is a small amount of discharge at the tip of the penis. There is no rash over the genitals, swelling or tenderness of the scrotum, or concerning finding otherwise. - BACK Back: Normal Inspection - MUSCULOSKELETAL/EXTREMETIES Musculoskeletal/Extremeties: MAEW, FROM, Non-Tender - NEURO Level of Consciousness: Awake, Alert, Appropriate Motor/Sensory: No Motor Deficit, No Sensory Deficit - DERM Integumentary: Warm, Dry, No Rash Course - Re-evaluation Re-evalutation: Urinalysis nonspecific. Chlamydia is positive. This is also consistent with patient's reported symptoms. Soft benign abdomen, no other complaints. I told patient that I was going to get a witness to perform the genital exam and he suddenly pulled out his genitals and showed me that he had a discharge at the end of his penis did not have any rash anywhere else. Unconcerning evaluation other than the apparent STD. Starting treatment for this, discussed expectations, treatment of partner, follow-up, return precautions. Patient states understanding and agreement. - Vital Signs Vital signs: Temp Pulse Resp BP Pulse Ox 98.7 F 81 17 148/79 H 99 09/14/19 00:12 09/14/19 00:12 09/14/19 00:12 09/14/19 00:12 09/14/19 00:12 - Laboratory Laboratory results interpreted by me: 09/14/19 09/14/19 00:05 00:05 Urine Ketones 20 H Urine Urobilinogen 2.0 H Chlamydia DNA (PCR) DETECTED H Discharge - Discharge Clinical Impression: Urethritis, Penile discharge Condition: Stable Disposition: HOME, SELF-CARE Additional Instructions: You are positive for chlamydia. You have been treated for this. Avoid sexual intercourse for 1 week. Any partner also needs to be treated. Follow-up with primary care for additional management. Return for any concerning symptoms including rash, fever, vomiting, or any other concerning or worsening symptoms. Forms: Return to Work
[2019-09-14 02:56] VITALS: BP 130/62
== END 2019-09-14 02:57 | disposition home or self-care (01) ==
LOC: ER 22:31
DX: N34.2 Other urethritis (principal); A74.9 Chlamydial infection, unspecified; R36.9 Urethral discharge, unspecified; R35.0 Frequency of micturition
CPT/HCPCS: 99283; 96374; 96375; 81001; 87491; 87591; S0119; J3490; J0696

== ENCOUNTER 2020-09-01 07:30 | Emergency (ER) | payer SELFPAY ==
[2020-09-01 07:42] VITALS: BP 135/73
[2020-09-01 08:40] LABS: APPEARANCE,URINE CLEAR; BILIRUBIN,URINE NEGATIVE (NEGATIVE); COLOR,URINE YELLOW; GLUCOSE, URINE NEGATIVE (NEGATIVE); KETONES,URINE NEGATIVE (NEGATIVE); PROTEIN,URINE NEGATIVE (NEGATIVE); URINE SPECIFIC GRAVITY 1.025
[2020-09-01] MEDS ORDERED: CEFTRIAXONE INJ 250 MG VIAL IM ONE (09:46)
[2020-09-01] MEDS ORDERED: AZITHROMYCIN 250 MG TABLET PO ONE (09:46)
[2020-09-01] MEDS ORDERED: METRONIDAZOLE 500 MG TABLET PO ONE (09:47)
[2020-09-01] MEDS ORDERED: LIDOCAINE 1% INJ (10 MG/ML) 10 ML MDV INJ ONE (09:47)
--- NOTE | 2020-09-01 10:03 | ER Document Report ---
HPI - HPI Patient complains to provider of: Penile discharge Time Seen by Provider: 09/01/20 09:46 Onset: Other - 2 days Onset/Duration: Persistent Quality of pain: Burning Pain Level: 1 Context: Patient presents complaining of penile discharge for the past 2 days with some dysuria and frequency. Patient states that he developed symptoms after receiving oral sex from a female recently. Patient has a history of prior STDs and is concerned about this today. Associated Symptoms: denies: Fever Exacerbated by: Denies Relieved by: Denies Similar symptoms previously: Yes Recently seen / treated by doctor: No - ROS ROS below otherwise negative: Yes Systems Reviewed and Negative: Yes All other systems reviewed and negative - CONSTITUTIONAL Constitutional: DENIES: Fever, Chills - GASTROINTESTINAL Gastrointestinal: DENIES: Abdominal Pain, Nausea - URINARY Urinary: REPORTS: Dysuria, Frequency - MUSCULOSKELETAL Musculoskeletal: DENIES: Back Pain - DERM Skin Color: Normal Skin Problems: None Past Medical History - General Information source: Patient - Social History Smoking Status: Current Every Day Smoker Chew tobacco use (# tins/day): No Frequency of alcohol use: Social Drug Abuse: None Occupation: In [employer] Family History: DM, Hypertension Patient has homicidal ideation: No - Medical History Medical History: Negative Renal/ Medical History: Denies: Hx Peritoneal Dialysis Surgical Hx: Negative - Immunizations Immunizations up to date: Yes Hx Diphtheria, Pertussis, Tetanus Vaccination: Yes Vertical Provider Document - CONSTITUTIONAL Agree With Documented VS: Yes Exam Limitations: No Limitations General Appearance: WD/WN, No Apparent Distress - INFECTION CONTROL TRAVEL OUTSIDE OF THE [place] IN LAST 30 DAYS: No - HEENT HEENT: Atraumatic, Normocephalic - NECK Neck: Normal Inspection - RESPIRATORY Respiratory: Breath Sounds Normal, No Respiratory Distress - CARDIOVASCULAR Cardiovascular: Regular Rate, Regular Rhythm - GI/ABDOMEN Gastrointestinal: Abdomen Soft, Abdomen Non-Tender, No Organomegaly - REPRODUCTIVE Male Genitalia: Normal Inspection Notes: Normal cremasteric reflex, no obvious penile discharge, no inguinal lymphadenopathy, RN Laurie is standby - BACK Back: Normal Inspection. negative: CVA Tenderness-Left - MUSCULOSKELETAL/EXTREMETIES Musculoskeletal/Extremeties: MAEW, FROM - NEURO Level of Consciousness: Awake, Alert, Appropriate Motor/Sensory: No Motor Deficit - DERM Integumentary: Warm, Dry, No Rash Course - Re-evaluation Re-evalutation: 09/01/20 10:01 Patient presents with symptoms worrisome for STD, will obtain culture and treat empirically at this time. Good return precautions discussed with patient. - Vital Signs Vital signs: Temp Pulse Resp BP Pulse Ox 98.4 F 59 L 18 135/73 H 100 09/01/20 07:41 09/01/20 07:41 09/01/20 07:41 09/01/20 07:41 09/01/20 07:41 - Laboratory Laboratory results interpreted by me: 09/01/20 08:05 Urine Urobilinogen 4.0 H 09/01/20 11:27 Labs- All tests 24 hr 09/01/20 09/01/20 08:05 08:05 Urine Color YELLOW Urine Appearance CLEAR Urine pH 6.0 Ur Specific [place] 1.025 Urine Protein NEGATIVE Urine Glucose (UA) NEGATIVE Urine Ketones NEGATIVE Urine Blood NEGATIVE Urine Nitrite (Reflex) NEGATIVE Urine Bilirubin NEGATIVE Urine Urobilinogen 4.0 H Leukocyte Esterase Rfl NEGATIVE Urine RBC (Auto) 1 Urine WBC (Reflex) 1 Urine Mucus (Auto) RARE Urine Ascorbic Acid NEGATIVE Chlamydia DNA (PCR) DETECTED H N.gonorrhoeae DNA (PCR) NOT DETECTED Discharge - Discharge Clinical Impression: Concern about STD in male without diagnosis Condition: Stable Disposition: HOME, SELF-CARE Instructions: Azithromycin ([facility]), Metronidazole ([facility]), Rocephin ([facility]) Additional Instructions: Return immediately for any new or worsening symptoms Followup with your primary care provider, call tomorrow to make a followup appointment Safe sex practices, always use a condom Forms: Return to Work [facility] - Follow up as needed
[2020-09-01 10:06] LABS: CHLAM PCR DETECTED (NOT DETECT)
== END 2020-09-01 10:27 | disposition home or self-care (01) ==
LOC: ER 07:30
DX: Z20.2 Contact with and (suspected) exposure to infections with a predominantly sexual mode of transmission (principal); R36.9 Urethral discharge, unspecified; R30.0 Dysuria; R35.0 Frequency of micturition; F17.200 Nicotine dependence, unspecified, uncomplicated
CPT/HCPCS: 99284; 96372; 81001; 87491; 87591; J0696